=== PATIENT | female | born 1970 | race Caucasian/White ===

== ENCOUNTER 2016-11-03 11:23 | Emergency (ER) | payer OTHER ==
[2016-11-03 12:58] VITALS: BP 126/78
[2016-11-03] MEDS ORDERED: Metoclopramide IV* 5 MG/ML 2 ML VIAL IV ONE (16:40)
[2016-11-03] MEDS ORDERED: fentaNYL* 50 MCG/ML 2 ML VIAL (100 MCG VIAL) IV ONE (16:40)
[2016-11-03] MEDS ORDERED: NS 0.9% 1000 ML* 1,000 ML IV ONE (16:40)
[2016-11-03] MEDS ORDERED: diPHENhydraMINE IV* 50 MG/ML 1 ml VIAL (BENADRYL) IV ONE (16:40)
[2016-11-03 16:55] LABS: Hematocrit 38 % (35-47); Hemoglobin 12.4 g/dl (12.0-16.0); Mean Corpuscular HGB Conc 33 g/dl (31-36); Mean Corpuscular Hemoglobin 30 pg (27-31); Mean Corpuscular Volume 91 fL (80-97); Mean Platelet Volume 9 um3 (7.4-10.4); Red Blood Count 4.15 10^6/ul (4.0-5.4); Red Cell Distribution Width 14 % (10.5-15); White Blood Count 6.6 10^3/ul (3.5-10.8)
[2016-11-03 17:06] LABS: Albumin 4.1 g/dL (3.2-5.2); BUN/Creatinine Ratio 18.7 (8-20); Calcium 9.1 mg/dL (8.6-10.3); EGFR Non-African American 40.5 (>60); Globulin 2.6 g/dL (2-4); Potassium 3.7 mmol/L (3.5-5.0); Total Bilirubin 0.9 mg/dL (0.2-1.0); Total Protein 6.7 g/dL (6.4-8.9)
[2016-11-03 17:13] LABS: Urine Bilirubin Negative (Negative); Urine Glucose Negative (Negative); Urine Nitrite Negative (Negative)
--- NOTE | 2016-11-03 17:37 | RAD ---
Indication: Headache for one week with worsening. Comparison: January 19, 2016 CT. Technique: Noncontrast CT vertex of skull through foramen magnum. Report: Unchanged small region of encephalomalacia at the medial RIGHT parietal lobe extending to the cortex both medially and at the vertex. No new region of mckeon matter white matter obscuration. Negative for intra or extra-axial hemorrhage. Negative for mass effect. Unremarkable cerebral sulci, ventricles, basal cisterns. No suspicious finding of the calvarium or skull base. Unremarkable orbital contents. Clear visualized paranasal sinuses and mastoid air spaces. Unremarkable scalp. IMPRESSION: 1. No acute intracranial process evident. 2. Unchanged small region of encephalomalacia at the medial RIGHT parietal lobe which may reflect previous ischemic infarct or other chronic insult.
--- NOTE | 2016-11-03 19:41 | ED ---
Linda Denis Rebecca, scribed for Rafa Davis MD on 11/03/16 at 1641 . Headache - HPI Summary HPI Summary: Pt is a 46 y/o F who presents to ED c/o KEMP. KEMP began gradually 1 week ago and has been constant since onset. Pain is characterized as pressure and currently ranked 10/10. KEMP is diffuse with radiation to between the shoulder blades. Sx aggravated and alleviated by nothing. Denies weakness, fever, chills and neck pain. Current pain is similar to when she had an intracranial hemorrhage 3 years ago of an unknown cause. When she had her prior hemorrhage, it was observed and she consulted with a neurosurgeon. Pt was evaluated by her PCP today who referred her to [facility] ED to receive CT scans. - History Of Current Complaint Chief Complaint: EDHeadache Stated Complaint: HEADACHE / NAUSEA Time Seen by Provider: 11/03/16 16:34 Hx Obtained From: Patient Onset/Duration: Gradual Onset, Started weeks ago - 1 week, Still Present Initially Headache Was: Moderate Currently Pain Is: Current Pain Scale(0-10)= - 10/10, Severe Timing: Constant Character: Pressure Location of Headache: Diffuse Radiates to: Between the shoulder blades Aggravating Factor: Nothing Allevating Factors: Nothing Associated Signs And Symptoms: Negative Related History: Similar Episode/DX As: - Intracranial hemorrhage (3 years ago) - Allergies/Home Medications Allergies/Adverse Reactions: Allergies Allergy/AdvReac Type Severity Reaction Status Date / Time Latex Allergy Severe Rash Verified 06/16/16 19:08 Meperidine [From Demerol HCl] Allergy Severe SYNCOPE Verified 06/16/16 19:08 Penicillins Allergy Severe SWELLING, Verified 06/16/16 19:08 HIVES, "TURN PURPLE" Phenothiazines Allergy Severe DYSTONIC Verified 06/16/16 19:08 REACTION Sulfa Drugs Allergy Severe Rash Verified 06/16/16 19:08 Prochlorperazine Allergy See Comment Verified 06/16/16 19:08 [From Compazine] Morphine AdvReac Severe HYPOTENSION Verified 06/16/16 19:33 PMH/Surg Hx/FS Hx/Imm Hx Endocrine/Hematology History: Denies: Hx Diabetes, Hx Thyroid Disease Cardiovascular History: Reports: Hx Peripheral Vascular Disease Denies: Hx Hypertension, Hx Pacemaker/ICD Respiratory History: Reports: Hx Sleep Apnea - wears CPAP at home Denies: Hx Asthma, Hx Chronic Obstructive Pulmonary Disease (COPD) GI History: Denies: Hx Ulcer History: Reports: Hx Kidney Stones, Other Problems/Disorders - Hx congenital medullary sponge kidney Musculoskeletal History: Reports: Hx Arthritis Sensory History: Reports: Hx Contacts or Glasses Denies: Hx Hearing Aid Opthamlomology History: Reports: Hx Contacts or Glasses Neurological History: Reports: Hx Headaches - Chronic. Followed by Dr. Claros , Other Neuro Impairments/Disorders - Hx intracranial hemorrhage Psychiatric History: Reports: Hx Depression Denies: Hx Panic Disorder - Surgical History Surgery Procedure, Year, and Place: TONSILLECTOMY, APPENDECTOMY, CHOLECYSTECTOMY , OVARIAN CYST, HYSTERECTOMY Hx Anesthesia Reactions: No - Immunization History Date of Tetanus Vaccine: Unk Date of Influenza Vaccine: None Infectious Disease History: No Infectious Disease History: Reports: Hx Shingles - about 6 months ago Denies: Hx Clostridium Difficile, Hx Hepatitis, Hx Human Immunodeficiency Virus (HIV), Hx of Known/Suspected MRSA, Hx Tuberculosis, Hx Known/Suspected VRE , Hx Known/Suspected VRSA, History Other Infectious Disease, Traveled Outside the [place] in Last 30 Days - Family History Known Family History: Positive: Cardiac Disease, Hypertension - Social History Alcohol Use: Occasionally Hx Substance Use: No Substance Use Type: Reports: None Hx Tobacco Use: No Smoking Status (MU): Never Smoked Tobacco Review of Systems Negative: Fever, Chills Negative: Arthralgia - Denies neck pain Positive: Headache - Diffuse. Negative: Weakness All Other Systems Reviewed And Are Negative: Yes Physical Exam - Summary Physical Exam Summary: VITAL SIGNS: Reviewed. GENERAL: Patient is a well developed and nourished female who is lying comfortable in the stretcher. Patient is not in any acute respiratory distress. HEAD AND FACE: No signs of trauma. No ecchymosis, hematomas or skull depressions. No sinus tenderness. EYES: PERRLA, EOMI x 2, No injected conjunctiva, no nystagmus. No photophobia. EARS: Hearing grossly intact. Ear canals and tympanic membranes are within normal limits. MOUTH: Oropharynx within normal limits. NECK: Supple, trachea is midline, no adenopathy, no JVD, no carotid bruit, no c- spine tenderness, neck with full ROM. No meningeal signs, no Kernig's or brudzinskis signs. CHEST: Symmetric, no tenderness at palpation LUNGS: Clear to auscultation bilaterally. No wheezing or crackles. CVS: Regular rate and rhythm, S1 and S2 present, no murmurs or gallops appreciated. ABDOMEN: Soft, non-tender. No signs of distention. No rebound no guarding, and no masses palpated. Bowel sounds are normal. EXTREMITIES: FROM in all major joints, no edema, no cyanosis or clubbing. NEURO: Alert and oriented x 3. No acute neurological deficits. Speech is normal and follows commands. SKIN: Dry and warm Vital Signs On Initial Exam: Initial Vitals Temp Pulse Resp BP Pulse Ox 98.2 F 77 16 137/86 100 11/03/16 11:25 11/03/16 11:25 11/03/16 11:25 11/03/16 11:25 11/03/16 11:25 Diagnostics - Vital Signs Vital Signs Temp Pulse Resp BP Pulse Ox 11/03/16 12:56 98.2 F 90 16 126/78 98 11/03/16 11:25 98.2 F 77 16 137/86 100 - Laboratory Lab Results: Lab Results 11/03/16 11/03/16 11/03/16 Range/Units 16:35 16:35 17:00 WBC 6.6 (3.5-10.8) 10^3/ul RBC 4.15 (4.0-5.4) 10^6/ul Hgb 12.4 (12.0-16.0) g/dl Hct 38 (35-47) % MCV 91 (80-97) fL MCH 30 (27-31) pg MCHC 33 (31-36) g/dl RDW 14 (10.5-15) % Plt Count 212 (150-450) 10^3/ul MPV 9 (7.4-10.4) um3 Neut % (Auto) 59.1 (38-83) % Lymph % (Auto) 31.1 (25-47) % Branch % (Auto) 8.5 (1-9) % Eos % (Auto) 0.5 (0-6) % Baso % (Auto) 0.8 (0-2) % Absolute Neuts (auto) 3.9 (1.5-7.7) 10^3/ul Absolute Lymphs (auto) 2.0 (1.0-4.8) 10^3/ul Absolute Monos (auto) 0.6 (0-0.8) 10^3/ul Absolute Eos (auto) 0 (0-0.6) 10^3/ul Absolute Basos (auto) 0.1 (0-0.2) 10^3/ul Absolute Nucleated RBC 0 10^3/ul Nucleated RBC % 0 Sodium 137 (133-145) mmol/L Potassium 3.7 (3.5-5.0) mmol/L Chloride 103 (101-111) mmol/L Carbon Dioxide 27 (22-32) mmol/L Anion Gap 7 (2-11) mmol/L BUN 26 H (6-24) mg/dL Creatinine 1.39 H (0.51-0.95) mg/dL Est GFR ( Amer) 52.0 (>60) Est GFR (Non-Af Amer) 40.5 (>60) BUN/Creatinine Ratio 18.7 (8-20) Glucose 78 (70-100) mg/dL Calcium 9.1 (8.6-10.3) mg/dL Total Bilirubin 0.90 (0.2-1.0) mg/dL AST 35 (13-39) U/L ALT 57 H (7-52) U/L Alkaline Phosphatase 232 H (34-104) U/L Total Protein 6.7 (6.4-8.9) g/dL Albumin 4.1 (3.2-5.2) g/dL Globulin 2.6 (2-4) g/dL Albumin/Globulin Ratio 1.6 (1-3) Urine Color Straw Urine Appearance Clear Urine pH 5.0 (5-9) Ur Specific [place] 1.006 L (1.010-1.030) Urine Protein Negative (Negative) Urine Ketones Negative (Negative) Urine Blood Negative (Negative) Urine Nitrate Negative (Negative) Urine Bilirubin Negative (Negative) Urine Urobilinogen Negative (Negative) Ur Leukocyte Esterase Negative (Negative) Urine Glucose Negative (Negative) Result Diagrams: 11/03/16 16:35 11/03/16 16:35 Lab Statement: Any lab studies that have been ordered have been reviewed, and results considered in the medical decision making process. - CT CT Brain CT Interpretation: No Acute Changes - 1. No acute intracranial process evident. 2. Unchanged small region of encephalomalacia at the medial RIGHT parietal lobe which may reflect previous ischemic infarct or other chronic insult. CT Interpretation Completed By: Radiologist Re-Evaluation - Re-Evaluation First Eval Re-Evaluation Time: 19:14 Change: Improved Comment: Pt is feeling significantly better, wants ot go home. She denies a lumbar puncture. Headache Course/Dx - Course Assessment/Plan: She is a 46 y/o F who presents to ER with a CC of KEMP. Reports she has had for 1week. She has Hx of hemorrhagic stroke, therefore the PCP sent her to ED for further assessment. Test results within normal limits besides chronic renal failure. Head CT shows no acute intracranial pathology. In the ED course, she was given IV fluids, reglan, benadryl and fentanyl for pain. After these meds, sx resolved. I offered patient a LP however she reports her symptoms resolved therefore she declined the lumbar puncture. Therefore pt will be d/c to home with followup with PCP. - Diagnoses Provider Diagnoses: Headache Discharge - Discharge Plan Condition: Stable Disposition: HOME Patient Education Materials: Acute Headache (ED) Referrals: Juliana Hampton MD [Primary Care Provider] - 3 Days Additional Instructions: Follow up with your primary care physician within the next 3 days. Return to ED for any returning or worsening of symptoms. The documentation as recorded by the Linda knowles Rebecca accurately reflects the service I personally performed and the decisions made by me, Rafa Davis MD.
== END 2016-11-03 19:31 | disposition home or self-care (01) ==
LOC: ED 11:23
DX: R51 Headache (principal)
CPT/HCPCS: 36415; 70450; 80053; 81003; 85025; 86850; 86900; 86901; 96361; 96374; 96375; 99283; J1200; J2765; J3010

== ENCOUNTER 2019-01-06 20:04 | Emergency (ER) | payer OTHER ==
[2019-01-06 20:12] VITALS: BP 143/82
[2019-01-06 20:33] LABS: Influenza A Molecular POSITIVE (Negative)
[2019-01-06] MEDS ORDERED: Oseltamivir CAP* 75 MG CAP PO ONE ×2 (20:33)
--- NOTE | 2019-01-06 20:35 | UC ---
FLU HPI - HPI Summary HPI Summary: fevers, headache body aches cough began today with same symptoms - History of Current Complaint Chief Complaint: UCRespiratory Stated Complaint: COUGH Time Seen by Provider: 01/06/19 20:19 Hx Obtained From: Patient ?: No Onset/Duration: Sudden Onset, Lasting Days - 1 Pain Intensity: 10 Pain Scale Used: 0-10 Numeric Associated Signs & Symptoms: Positive: Fever, Myalgia, Cough, Headache Related Hx: Possible Flu/Infectious Exposure - Allergy/Home Medications Allergies/Adverse Reactions: Allergies Allergy/AdvReac Type Severity Reaction Status Date / Time latex Allergy Rash Verified 01/06/19 20:14 meperidine [From Demerol] Allergy SYNCOPE Verified 01/06/19 20:14 morphine Allergy HYPOTENSION Verified 01/06/19 20:14 Penicillins Allergy HIVES, Verified 01/06/19 20:14 SWELLING, "TURNING PURPLE" Phenothiazines Allergy DYSTONIC Verified 01/06/19 20:14 REACTION prochlorperazine Allergy TARDIVE Verified 01/06/19 20:14 [From Compazine] DYSKINESIA Sulfa (Sulfonamide Allergy Rash Verified 01/06/19 20:14 Antibiotics) Home Medications: Home Medications D-Methorphan/PE/Acetaminophen [Vicks Dayquil Liquid] 1 liq PO ONCE PRN 01/06/19 [History Confirmed 01/06/19] PMH/Surg Hx/FS Hx/Imm Hx Previously Healthy: No - brain bleed - Surgical History Surgical History: Yes Surgery Procedure, Year, and Place: TONSILLECTOMY, APPENDECTOMY, CHOLECYSTECTOMY , OVARIAN CYST, HYSTERECTOMY, LEFT HIP REPLACEMENT - Family History Known Family History: Positive: Cardiac Disease, Hypertension Family History: Father from . Mother with B-cell lymphoma and HTN. Brother wth cardiac arrhthymia. - Social History Occupation: Employed Part-time Lives: With Family Alcohol Use: Occasionally Substance Use Type: None Smoking Status (MU): Never Smoked Tobacco - Immunization History Most Recent Influenza Vaccination: never Most Recent Tetanus Shot: "Up to date" Most Recent Pneumonia Vaccination: never Review of Systems All Other Systems Reviewed And Are Negative: Yes Constitutional: Positive: Fever, Chills, Fatigue Skin: Positive: Negative Eyes: Positive: Negative ENT: Positive: Sore Throat Respiratory: Positive: Cough Cardiovascular: Positive: Negative Gastrointestinal: Positive: Negative Genitourinary: Positive: Negative Motor: Positive: Negative Neurovascular: Positive: Negative Musculoskeletal: Positive: Arthralgia, Myalgia Neurological: Positive: Headache Psychological: Positive: Negative Is Patient Immunocompromised?: No Physical Exam Triage Information Reviewed: Yes Appearance: Well-Nourished, Ill-Appearing, Pain Distress Vital Signs: Initial Vital Signs Temp 100.1 F 01/06/19 20:07 Pulse 119 01/06/19 20:07 Resp 16 01/06/19 20:07 BP 143/82 01/06/19 20:07 Pulse Ox 99 01/06/19 20:07 Vital Signs Reviewed: Yes Eye Exam: Normal Eyes: Positive: Conjunctiva Clear ENT Exam: Normal ENT: Positive: Normal ENT inspection, Hearing grossly normal, Pharynx normal, TMs normal, Uvula midline. Negative: Nasal congestion, Trismus, Muffled voice, Hoarse voice, Dental tenderness, Sinus tenderness Dental Exam: Normal Neck exam: Normal Neck: Positive: Supple, Nontender, No Lymphadenopathy Respiratory Exam: Normal Respiratory: Positive: Chest non-tender, Lungs clear, Normal breath sounds, No respiratory distress, No accessory muscle use Cardiovascular Exam: Normal, Other Cardiovascular: Positive: No Murmur, Pulses Normal, Brisk Capillary Refill, Tachycardia Musculoskeletal Exam: Normal Musculoskeletal: Positive: Strength Intact, ROM Intact, No Edema Neurological Exam: Normal Neurological: Positive: Alert, Muscle Tone Normal Psychological Exam: Normal Skin Exam: Normal Flu Course/Dx - Course Course Of Treatment: influenza A positive---statrt tamiflu, tylenol/ibuprofen otc symptom relief incesase fluids follow with pcp - Differential Dx/Diagnosis Provider Diagnosis: Hypertension, Influenza A Discharge - Sign-Out/Discharge Documenting (check all that apply): Patient Departure All imaging exams completed and their final reports reviewed: No Studies - Discharge Plan Condition: Stable Disposition: HOME Prescriptions: Oseltamivir CAP* [Tamiflu CAP*] 75 mg PO BID #8 cap Patient Education Materials: Influenza (ED), Hypertension (ED) Forms: *Work Release Referrals: Juliana Hampton MD [Primary Care Provider] - - Billing Disposition and Condition Condition: STABLE Disposition: Home
== END 2019-01-06 20:45 | disposition home or self-care (01) ==
LOC: UCEAST 20:04
DX: J10.1 Influenza due to other identified influenza virus with other respiratory manifestations (principal); I10 Essential (primary) hypertension; Z96.642 Presence of left artificial hip joint; Z88.5 Allergy status to narcotic agent; Z88.0 Allergy status to penicillin; Z88.2 Allergy status to sulfonamides; Z88.8 Allergy status to other drugs, medicaments and biological substances; Z91.040 Latex allergy status
CPT/HCPCS: 99212; A9270-GY; G0463

== ENCOUNTER 2019-07-09 17:22 | Emergency (ER) | payer OTHER ==
--- NOTE | 2019-07-09 17:54 | ED ---
Headache - HPI Summary HPI Summary: This patient is a 49 year old female presenting to [facility] with a chief complaint of headache and vertigo since 3 days ago. She reports hx of spontaneous brain bleed in 2013. She states her symptoms are similar. She also reports sudden onset constant pain between shoulder blades, fatigue and lightheadedness. She rates her pain 10/10 in severity. Pt denies any fever, chills, erythema of eyes, sore throat, CP, SOB, cough, abdominal pain, N/V, dysuria, hematuria, myalgia, edema, anxiety, depression, or rash. - History Of Current Complaint Chief Complaint: EDHeadache Stated Complaint: DIZZY, LIGHT HEADED PER PT Time Seen by Provider: 07/09/19 17:38 Hx Obtained From: Patient Location of Headache: Temporal, Parietal, Occipital Associated Signs And Symptoms: Dizziness - Allergies/Home Medications Allergies/Adverse Reactions: Allergies Allergy/AdvReac Type Severity Reaction Status Date / Time latex Allergy Rash Verified 01/06/19 20:14 meperidine [From Demerol] Allergy SYNCOPE Verified 01/06/19 20:14 morphine Allergy HYPOTENSION Verified 01/06/19 20:14 Penicillins Allergy HIVES, Verified 01/06/19 20:14 SWELLING, "TURNING PURPLE" Phenothiazines Allergy DYSTONIC Verified 01/06/19 20:14 REACTION prochlorperazine Allergy TARDIVE Verified 01/06/19 20:14 [From Compazine] DYSKINESIA Sulfa (Sulfonamide Allergy Rash Verified 01/06/19 20:14 Antibiotics) PMH/Surg Hx/FS Hx/Imm Hx Endocrine/Hematology History: Denies: Hx Diabetes, Hx Thyroid Disease Cardiovascular History: Reports: Hx Peripheral Vascular Disease Denies: Hx Hypertension, Hx Pacemaker/ICD Respiratory History: Reports: Hx Sleep Apnea - wears CPAP at home Denies: Hx Asthma, Hx Chronic Obstructive Pulmonary Disease (COPD) GI History: Denies: Hx Ulcer History: Reports: Hx Kidney Stones, Other Problems/Disorders - Hx congenital medullary sponge kidney Musculoskeletal History: Reports: Hx Arthritis Sensory History: Reports: Hx Contacts or Glasses Denies: Hx Hearing Aid Opthamlomology History: Reports: Hx Contacts or Glasses Neurological History: Reports: Hx Headaches - Chronic. Followed by Dr. Claros , Other Neuro Impairments/Disorders - Hx intracranial hemorrhage Psychiatric History: Reports: Hx Depression Denies: Hx Panic Disorder - Surgical History Surgery Procedure, Year, and Place: TONSILLECTOMY, APPENDECTOMY, CHOLECYSTECTOMY , OVARIAN CYST, HYSTERECTOMY, LEFT HIP REPLACEMENT Hx Anesthesia Reactions: No - Immunization History Date of Tetanus Vaccine: Unk Date of Influenza Vaccine: None Infectious Disease History: No Infectious Disease History: Reports: Hx Shingles - about 6 months ago Denies: Hx Clostridium Difficile, Hx Hepatitis, Hx Human Immunodeficiency Virus (HIV), Hx of Known/Suspected MRSA, Hx Tuberculosis, Hx Known/Suspected VRE , Hx Known/Suspected VRSA, History Other Infectious Disease, Traveled Outside the [place] in Last 30 Days - Family History Known Family History: Positive: Cardiac Disease, Hypertension Family History: Father from . Mother with B-cell lymphoma and HTN. Brother wth cardiac arrhthymia. - Social History Alcohol Use: Occasionally Hx Substance Use: No Substance Use Type: Reports: None Hx Tobacco Use: No Smoking Status (MU): Never Smoked Tobacco Review of Systems Positive: Fatigue. Negative: Fever, Chills Negative: Erythema Negative: Sore Throat Negative: Chest Pain Negative: Shortness Of Breath, Cough Negative: Abdominal Pain, Vomiting, Nausea Negative: dysuria, hematuria Positive: Other - Scapular pain. . Negative: Myalgia, Edema Negative: Rash Neurological: Other - Lightheaded, vertigo Positive: Headache Negative: Anxious, Depressed All Other Systems Reviewed And Are Negative: No Physical Exam - Summary Physical Exam Summary: Constitutional: Well-developed, Well-nourished, Alert. (-) Distressed Skin: Warm, Dry HENT: Normocephalic; Atraumatic. No meningysmus, no focal tenderness. Eyes: Conjunctiva normal Neck: Musculoskeletal ROM normal neck. (-) JVD, (-) Stridor, (-) Tracheal deviation Cardio: Rhythm regular, rate normal, Heart sounds normal; Intact distal pulses; The pedal pulses are 2+ and symmetric. Radial pulses are 2+ and symmetric. (-) Murmur Pulmonary/Chest wall: Effort normal. (-) Respiratory distress, (-) Wheezes, (-) Rales Abd: Soft. (-) Tenderness, (-) Distension, (-) Guarding, (-) Rebound Musculoskeletal: (-) Edema Lymph: (-) Cervical adenopathy Neuro: Alert, Oriented x3, Strength normal, Cranial nerves II-XII are grossly intact. (-) Dysmetria, (-) Nystagmus, (-) Ataxia by finger to nose testing, (-) Sensory deficit. Psych: Mood and affect Normal Triage Information Reviewed: Yes Vital Signs On Initial Exam: Initial Vitals Temp Pulse Resp BP Pulse Ox 98.4 F 82 20 147/74 100 07/09/19 17:32 07/09/19 17:32 07/09/19 17:32 07/09/19 17:32 07/09/19 17:32 Vital Signs Reviewed: Yes Diagnostics - Vital Signs Vital Signs Temp Pulse Resp BP Pulse Ox 07/09/19 17:32 98.4 F 82 20 147/74 100 - Laboratory Result Diagrams: 07/09/19 19:37 07/09/19 19:37 Lab Statement: Any lab studies that have been ordered have been reviewed, and results considered in the medical decision making process. Re-Evaluation - Re-Evaluation First Eval Re-Evaluation Time: 21:32 Change: Unchanged Comment: Patient's pain has not completely improved with Valium. Second Eval Re-Evaluation Time: 23:22 Change: Improved Comment: We discussed CT results. She declined further pain medication. She is ready to be discharged home. Headache Course/Dx - Course Course Of Treatment: This patient is a 49 year old female presenting to [facility] with a chief complaint of headache and vertigo since 3 days ago. The patient has not been evaluated recently. No features of subarachnoid hemorrhage. The pain has worsened since onset and gets worse with movement. No known risk factors for CAD. The patient will be signed out to Dr. Valenzuela at shift change 1900 pending treatment and imaging. - Diagnoses Provider Diagnoses: Headache Discharge ED - Sign-Out/Discharge Documenting (check all that apply): Sign-Out Patient Signing out patient TO: Richelle Valenzuela - At shift change 1900 pending imaging Patient Received Moderate/Deep Sedation with Procedure: No - Discharge Plan Condition: Stable Disposition: HOME Patient Education Materials: General Headache (ED) Referrals: Juliana Hampton MD [Primary Care Provider] - 3 Days Additional Instructions: Please follow up with your primary care physician within three days. Please return to ED for any new or worsening symptoms. - Billing Disposition and Condition Condition: STABLE Disposition: Home - Attestation Statements Document Initiated by Scribe: Yes Documenting Scribe: Alexander Blas Provider For Whom Scribe is Documenting (Include Credential): Jaswinder Wesley MD Scribe Attestation: I, Alexander Blas, scribed for Jaswinder Wesley MD on 07/20/19 at 1150. Scribe Documentation Reviewed: Yes Provider Attestation: The documentation as recorded by the scribe, Alexander Blas accurately reflects the service I personally performed and the decisions made by me, Jaswinder Wesley MD Status of Scribe Document: Viewed
[2019-07-09] MEDS ORDERED: diazePAM INJ* 5 MG/ML 2ML SYRINGE IV ONE (17:58)
[2019-07-09 18:53] LABS: Urine Appearance Clear; Urine Bilirubin Negative (Negative); Urine Blood Negative (Negative); Urine Color Yellow; Urine Glucose Negative (Negative); Urine Ketones Negative (Negative); Urine Nitrite Negative (Negative); Urine Protein Negative (Negative); Urine Specific Gravity 1.008 (1.010-1.030); Urine Urobilinogen Negative (Negative)
--- NOTE | 2019-07-09 19:24 | ED ---
Progress - Progress Note Progress Note: The patient is a sign-out from Dr. Jaswinder Wesley MD, to Dr. Richelle Valenzuela MD, at change of shift at 1900 on 07/09/2019, pending labs, Brain CT, Head/Neck CTA, and disposition. Blood work reveals MCH of 32, BUN of 27, creatinine of 1.50, magnesium of 1.3, alkaline phosphatase of 220, but is otherwise normal. Second troponin is 0.00. UA is negative for infection but reveals specific gravity of 1.008. Toxicology report is positive for amphetamines and cannabinoids. The patient was administered Valium IV for pain relief. Brain CT impression reveals stable focus of encephalomalacia in right parietal lobe but is otherwise negative for acute intracranial abnormality. Head/Neck CTA impression reveals mildly ectatic distal cavernous left internal carotid artery and an identified dominant right vertebral artery. We discussed all results, and the patient agrees with discharge home. - Results/Orders Results/Orders: Brain CT Impression: 1. No acute intracranial findings or significant change since 11/03/16. 2. Stable focus of encephalomalacia in right parietal lobe. ED physician has reviewed this imaging report. Head/Neck CTA Impression: 1. No significant arterial stenosis or occlusion on this CTA head. 2. The distal cavernous left internal carotid artery is mildly ectatic. 3. A dominant right vertebral artery is identified. 4. Additional findings described above. ED physician has reviewed this imaging report. Re-Evaluation - Re-Evaluation First Eval Re-Evaluation Time: 21:32 Change: Unchanged Comment: Patient's pain has not completely improved with Valium. Second Eval Re-Evaluation Time: 23:22 Change: Improved Comment: We discussed CT results. She declined further pain medication. She is ready to be discharged home. Course/Dx - Course Course Of Treatment: The patient is a sign-out from Dr. Jaswinder Wesley MD, to Dr. Richelle Valenzuela MD, at change of shift at 1900 on 07/09/2019, pending labs, Brain CT, Head/Neck CTA, and disposition. Blood work reveals MCH of 32, BUN of 27, creatinine of 1.50, magnesium of 1.3, alkaline phosphatase of 220, but is otherwise normal. Second troponin is 0.00. UA is negative for infection but reveals specific gravity of 1.008. Toxicology report is positive for amphetamines and cannabinoids. The patient was administered Valium IV for pain relief. Brain CT impression reveals stable focus of encephalomalacia in right parietal lobe but is otherwise negative for acute intracranial abnormality. Head /Neck CTA impression reveals mildly ectatic distal cavernous left internal carotid artery and an identified dominant right vertebral artery. We discussed all results, and the patient agrees with discharge home. - Diagnoses Provider Diagnoses: Headache Discharge ED - Sign-Out/Discharge Documenting (check all that apply): Patient Departure - Patient will be discharged home., Receiving Sign-Out Receiving patient FROM: Jaswinder Wesley - Patient is a sign-out from Dr. Jaswinder Wesley MD, at 1900 on 07/09/2019, pending labs, Brain CT, Head/Neck CTA, and disposition. Patient Received Moderate/Deep Sedation with Procedure: No - Discharge Plan Condition: Stable Disposition: HOME Patient Education Materials: General Headache (ED) Referrals: Juliana Hampton MD [Primary Care Provider] - 3 Days Additional Instructions: Please follow up with your primary care physician within three days. Please return to ED for any new or worsening symptoms. - Billing Disposition and Condition Condition: STABLE Disposition: Home - Attestation Statements Document Initiated by Nakulibe: Yes Documenting Scribe: Alejandra Rodriguez Provider For Whom Charly is Documenting (Include Credential): Dr. Richelle Valenzuela MD Scribe Attestation: Alejandra Denis scribed for Dr. Richelle Valenzuela MD on 07/10/19 at 0101. Scribe Documentation Reviewed: Yes Provider Attestation: The documentation as recorded by the Alejandra knowles accurately reflects the service I personally performed and the decisions made by me, Dr. Richelle Valenzuela MD Status of Scribe Document: Viewed
[2019-07-09 19:50] LABS: ABS Basophils 0.1 10^3/ul (0-0.2); ABS Eosinophils 0.1 10^3/ul (0-0.6); ABS Monocytes 0.4 10^3/ul (0-0.8); ABS Neutrophils 4.5 10^3/ul (1.5-7.7); Eosinophil % 0.8 %; Hematocrit 38 % (35-47); Hemoglobin 12.8 g/dL (12.0-16.0); Lymphocyte % 29.2 %; Mean Corpuscular HGB Conc 34 g/dL (31-36); Mean Corpuscular Hemoglobin 32 pg (27-31); Mean Corpuscular Volume 93 fL (80-97); Platelet Count 187 10^3/uL (150-450); Red Blood Count 4.06 10^6 /uL (3.70-4.87); Red Cell Distribution Width 14 % (10-15)
[2019-07-09 20:09] LABS: Albumin 4.3 g/dL (3.2-5.2); Albumin/Globulin Ratio 1.9 (1-3); C Reactive Protein 2.94 mg/L (<8.01); Calcium 9.3 mg/dL (8.6-10.3); EGFR African American 44.3 (>60); EGFR Non-African American 36.6 (>60); Globulin 2.3 g/dL (2-4); HDL Cholesterol 55.5 mg/dL; Magnesium 1.3 mg/dL (1.9-2.7); Potassium 3.9 mmol/L (3.5-5.0); Total Bilirubin 0.8 mg/dL (0.2-1.0); Total Protein 6.6 g/dL (6.4-8.9)
[2019-07-09 20:51] LABS: TSH (Thyroid Stimulating Horm) 1.44 mcIU/mL (0.34-5.60)
[2019-07-09] MEDS ORDERED: Iodixanol* (CONTRAST) 320 MG/ML 100 ML SDV IV ONE (20:53)
[2019-07-10 00:04] VITALS: BP 136/82
== END 2019-07-10 00:03 | disposition home or self-care (01) ==
LOC: ED 17:22
DX: R51 Headache (principal); F32.9 Major depressive disorder, single episode, unspecified; Z88.5 Allergy status to narcotic agent; Z88.0 Allergy status to penicillin; Z88.2 Allergy status to sulfonamides; Z88.8 Allergy status to other drugs, medicaments and biological substances; Z91.040 Latex allergy status
CPT/HCPCS: 36415; 70450; 70496; 70498; 80053; 80061; 81003; 83036; 83605; 83735; 84443; 84484; 85025; 85379; 86140; 93005; 96374; 99283; J3360; Q9967